=== PATIENT | male | born 1950 | race Caucasian/White ===

== ENCOUNTER 2017-05-17 10:55 | Emergency (ER) | payer MEDICARE, BC ==
[~2017-05-17] VITALS: Ht 180.3 cm; Wt 90.3 kg
[2017-05-17] MEDS ORDERED: SULFAMETH/TRIMETH 800/160 MG TABLET PO ONE (11:45)
[2017-05-17] MEDS ORDERED: CEPHALEXIN MONOHYDRATE 500 MG CAPSULE PO ONE (11:45)
[2017-05-17] MEDS ORDERED: predniSONE 20 MG TABLET PO ONE (11:45)
--- NOTE | 2017-05-17 11:54 | NUR ---
Patient discharged to home in stable conditon. Written and verbal after care instructions given to patient. Patient verbalizes understanding of instructions.
[2017-05-17] MEDS ORDERED: SULFAMETH/TRIMETH 800/160 MG TABLET ONE (12:05)
[2017-05-17] MEDS ORDERED: predniSONE 10 MG TABLET ONE (12:05)
[2017-05-17] MEDS ORDERED: predniSONE 50 MG TABLET ONE (12:05)
== END 2017-05-17 11:55 | disposition home or self-care (01) ==
LOC: ER 10:55
DX: L03.113 Cellulitis of right upper limb (principal); K21.9 Gastro-esophageal reflux disease without esophagitis; Z88.0 Allergy status to penicillin
CPT/HCPCS: A4663; J7512

== ENCOUNTER 2020-05-15 04:41 | Emergency (ER) | payer MEDICARE, BC ==
[~2020-05-15] VITALS: Ht 180.3 cm; Wt 78.9 kg
--- NOTE | 2020-05-15 04:55 | NUR ---
Dr Tim at bedside for MSE.
[2020-05-15] MEDS ORDERED: HYDROMORPHONE 1 MG/1 ML DISP.SYRIN IV ONE ×2 (05:00→09:00)
[2020-05-15] MEDS ORDERED: ONDANSETRON 4 MG/2 ML VIAL IV ONE (05:00)
[2020-05-15] MEDS ORDERED: KETOROLAC TROMETHAMINE 15 MG INJ IVP ONE ×2 (05:00→09:00)
[2020-05-15] MEDS ORDERED: KETOROLAC TROMETHAMINE 15 MG INJ ONE ×2 (05:07→09:01)
[2020-05-15] MEDS ORDERED: ONDANSETRON 4 MG/2 ML VIAL ONE (05:07)
[2020-05-15] MEDS ORDERED: HYDROMORPHONE 1 MG/1 ML DISP.SYRIN ONE ×2 (05:07→09:02)
[2020-05-15 05:26] LABS: *BILIRUBIN,URIN NEGATIVE (NEGATIVE); *CLARITY,URINE CLEAR (CLEAR); *COLOR,URINE YELLOW (YELLOW); *KETONES,URINE NEGATIVE (NEGATIVE); *UROBILINOGEN,URINE 0.2 E.U./dl (NORMAL); LEUKOCYTE ESTERASE ,URINE NEGATIVE (NEGATIVE); NITRITE, URINE NEGATIVE (NEGATIVE); PH,URINE 7.5 (5.0-8.0); UGLUCOSE NEGATIVE (NEGATIVE)
[2020-05-15 05:27] LABS: BASOPHILS % (AUTO) 0.2 % (0.0-2.0); EOSINOPHILS % (AUTO) 0.1 % (0.0-7.0); HEMATOCRIT 47.9 % (36.7-47.1); HEMOGLOBIN 16.2 g/dL (12.5-16.3); LYMPHOCYTES # (AUTO) 0.7 K/uL (20.0-40.0); LYMPHOCYTES % (AUTO) 5.9 % (20.5-51.5); MEAN CORPUSCULAR HEMOGLOBIN 31.9 uug (23.8-33.4); MEAN CORPUSCULAR HGB CONC 34 g/dL (32.5-36.3); MEAN CORPUSCULAR VOLUME 94.5 fL (73.0-96.2); MONOCYTES # (AUTO) 0.3 K/uL (2.0-10.0); NEUTROPHILS # (AUTO) 10.3 K/uL (1.8-8.9); NEUTROPHILS % (AUTO) 90.8 % (38.5-71.5); PLATELET COUNT (AUTO) 185 K/uL (152-348); RED BLOOD CELL COUNT(AUTO) 5.07 MIL/uL (4.06-5.63); WHITE BLOOD COUNT (AUTO) 11.4 K/uL (3.6-10.2)
[2020-05-15 05:35] LABS: *BLOOD, URINE NEGATIVE (NEGATIVE)
[2020-05-15 05:42] LABS: BILIRUBIN,DIRECT 0.1 mg/dL (0.0-0.2); BILIRUBIN,TOTAL 0.6 mg/dL (0.2-1.0); CREATININE 1.5 mg/dL (0.6-1.3); POTASSIUM 4.2 mmol/L (3.5-5.1); TOTAL PROTEIN, SERUM 7.2 g/dL (6.4-8.2)
--- NOTE | 2020-05-15 07:30 | NUR ---
Patient is awake and alert eating breakfast in no distress.
[2020-05-15] MEDS ORDERED: IV NORMAL SALINE 250 ML IV ONE (07:34)
[2020-05-15] MEDS ORDERED: SWABABLE VALVE TRANSFER SET EA MC ONE (07:34)
[2020-05-15] MEDS ORDERED: IOHEXOL 300MG/ML 100 ML INFUS..BTL ONE (07:34)
--- NOTE | 2020-05-15 09:31 | NUR ---
Patient was given pain meds for c/o flank pain. States pain has diminisehd. States he is aware of Dilaudid/[place] precautions and will have a ride home. DC, RX AND FOLLOW UP INSTRUCTIONS GIVEN AND EXPLAINED TO PATIENT WHO STATES HE UNDERSTANDS ALL INSTRUCTIONS.
--- NOTE | 2020-05-15 09:33 | NUR ---
IV removed. Catheter intact and site benign. Pressure and 4x4 gauze applied to site. No bleeding noted.
[2020-05-15 09:35] VITALS: BP 139/75
== END 2020-05-15 09:35 | disposition home or self-care (01) ==
LOC: ER 04:43
DX: N13.6 Pyonephrosis (principal); N17.9 Acute kidney failure, unspecified; Z88.0 Allergy status to penicillin; K21.9 Gastro-esophageal reflux disease without esophagitis; Z85.46 Personal history of malignant neoplasm of prostate
CPT/HCPCS: 36415; 74178; 76770; 80048; 80076; 81003; 85025; 85730; 96374; 96375; 96376; 99285; J1170 ×2; J1885 ×2; J2405; Q9967; A4663; J7030; J7050

== ENCOUNTER 2022-12-29 10:16 | Emergency (ER) | payer MEDICARE, BC ==
[~2022-12-29] VITALS: Ht 180.3 cm; Wt 89.4 kg
[2022-12-29 10:50] LABS: HEMATOCRIT 53.5 % (36.7-47.1); MEAN CORPUSCULAR HEMOGLOBIN 30.9 uug (23.8-33.4); MEAN CORPUSCULAR VOLUME 93.7 fL (73.0-96.2); PLATELET COUNT (AUTO) 197 K/uL (152-348)
[2022-12-29 11:17] LABS: CARBON DIOXIDE 24 mmol/L (21-32); CHLORIDE 98 mmol/L (98-107); CREATININE 1.4 mg/dL (0.6-1.3); POTASSIUM 4.5 mmol/L (3.5-5.1); UREA NITROGEN, BLOOD 23 mg/dL (7-18)
[2022-12-29 11:23] LABS: ALANINE AMINOTRANSFERASE 39 U/L (16-63); ALKALINE PHOSPHATASE 60 U/L (50-136); ASPARTATE AMINOTRANSFERASE 25 U/L (15-37); BILIRUBIN,DIRECT 0.2 mg/dL (0.0-0.2); BILIRUBIN,TOTAL 0.9 mg/dL (0.2-1.0); LIPASE 47 U/L (73-393); TOTAL PROTEIN, SERUM 7.5 g/dL (6.4-8.2)
[2022-12-29] MEDS ORDERED: ONDANSETRON 4 MG/2 ML VIAL ONE (11:29)
[2022-12-29] MEDS ORDERED: ONDANSETRON 4 MG/2 ML VIAL IV ONE (11:30)
[2022-12-29] MEDS ORDERED: IV NORMAL SALINE 1000 ML BAG IV ONE (11:30)
[2022-12-29] MEDS ORDERED: ONDA4TAB5 PO (11:31)
[2022-12-29 11:34] LABS: *BILIRUBIN,URIN NEGATIVE (NEGATIVE); *CLARITY,URINE CLEAR (CLEAR); *COLOR,URINE YELLOW (YELLOW); *KETONES,URINE TRACE (NEGATIVE); *UROBILINOGEN,URINE 0.2 E.U./dl (NORMAL); LEUKOCYTE ESTERASE ,URINE NEGATIVE (NEGATIVE); NITRITE, URINE NEGATIVE (NEGATIVE); PH,URINE 6.5 (5.0-8.0); UGLUCOSE NEGATIVE (NEGATIVE)
[2022-12-29 12:16] LABS: *BLOOD, URINE TRACE (NEGATIVE)
[2022-12-29 12:39] VITALS: BP 123/83; O2SAT 96
[2022-12-29 13:00] LABS: RBC,URINE 0-3 /HPF (0-3); WBC,URINE 0-3 /HPF (0-3)
== END 2022-12-29 12:40 | disposition home or self-care (01) ==
LOC: ER 10:16
DX: R11.2 Nausea with vomiting, unspecified (principal); R19.7 Diarrhea, unspecified; R10.9 Unspecified abdominal pain; N28.9 Disorder of kidney and ureter, unspecified; K21.9 Gastro-esophageal reflux disease without esophagitis; Z88.0 Allergy status to penicillin; Z79.899 Other long term (current) drug therapy
CPT/HCPCS: 36415; 83690; 85025; A4663; J2405; J7040

== ENCOUNTER 2023-12-17 18:29 | Inpatient (IN) | payer MEDICARE, BC ==
[~2023-12-17] VITALS: Ht 180.3 cm; Wt 91.2 kg
[~2023-12-17 18:29] MED LIST: ONDA4TAB5 PO
[2023-12-17 19:54] LABS: BASOPHILS % (AUTO) 0.5 % (0.0-2.0); EOSINOPHILS # (AUTO) 0.2 K/uL (0.0-0.7); EOSINOPHILS % (AUTO) 2.9 % (0.0-7.0); HEMATOCRIT 52.6 % (36.7-47.1); HEMOGLOBIN 17.1 g/dL (12.5-16.3); LYMPHOCYTES # (AUTO) 1.9 K/uL (0.8-4.8); LYMPHOCYTES % (AUTO) 22.8 % (20.5-51.5); MEAN CORPUSCULAR HEMOGLOBIN 28.7 uug (23.8-33.4); MEAN CORPUSCULAR HGB CONC 33 g/dL (32.5-36.3); MEAN CORPUSCULAR VOLUME 88.2 fL (73.0-96.2); MONOCYTES % (AUTO) 12.1 % (0.0-11.0); NEUTROPHILS # (AUTO) 5.1 K/uL (1.8-8.9); NEUTROPHILS % (AUTO) 61.7 % (38.5-71.5); PLATELET COUNT (AUTO) 215 K/uL (152-348); RED BLOOD CELL COUNT(AUTO) 5.96 MIL/uL (4.06-5.63); RED CELL DISTRIBUTION WIDTH 15.3 % (12.1-16.2); WHITE BLOOD COUNT (AUTO) 8.3 K/uL (3.6-10.2)
[2023-12-17 20:03] LABS: CALCIUM 9.8 mg/dL (8.5-10.1); CREATININE 1.2 mg/dL (0.6-1.3); POTASSIUM 4.1 mmol/L (3.5-5.1)
[2023-12-17 20:05] LABS: DIFFERENTIAL COMMENT 1
[2023-12-17] MEDS ORDERED: ONDANSETRON 4 MG/2 ML VIAL ONE (20:06)
[2023-12-17 20:09] LABS: BILIRUBIN,DIRECT 0.1 mg/dL (0.0-0.2); BILIRUBIN,TOTAL 0.5 mg/dL (0.2-1.0); TOTAL PROTEIN, SERUM 7.3 g/dL (6.4-8.2)
[2023-12-17] MEDS: IV NORMAL SALINE 1000 ML BAG IV ONE (20:39)
[2023-12-17] MEDS: ONDANSETRON 4 MG/2 ML VIAL IV ONE (20:39)
[2023-12-17] MEDS ORDERED: ONDANSETRON 4 MG/2 ML VIAL IV PRN ×2 (22:00→22:30)
[2023-12-17] MEDS ORDERED: ACETAMINOPHEN 325 MG TABLET PO PRN ×2 (22:00→22:30)
[2023-12-17] MEDS ORDERED: ENOXAPARIN SODIUM 40 MG/0.4 ML DISP.SYRIN SQ SCH (22:00)
[2023-12-17] MEDS ORDERED: IV 1/2NS 1000 ML 1,000 ML IV PRN (22:00)
[2023-12-17] MEDS ORDERED: REMEDY ESSENTIAL ZINC PASTE 113 GM TP PRN (22:00)
[2023-12-17] MEDS ORDERED: MAGNESIUM HYDROXIDE 30 ML LIQUID UDC PO PRN (22:30)
[2023-12-17] MEDS ORDERED: SWABABLE VALVE TRANSFER SET EA MC ONE (22:39)
[2023-12-17] MEDS ORDERED: IV NORMAL SALINE 250 ML IV ONE (22:39)
[2023-12-17] MEDS ORDERED: IOHEXOL 350 100 ML INFUS..BTL ONE (22:39)
[2023-12-18 00:39] VITALS: BP 138/74; TEMP 98.4; O2SAT 92
[2023-12-18] MEDS: IV 1/2NS 1000 ML 1,000 ML IV PRN (00:46)
[2023-12-18] MEDS: ENOXAPARIN SODIUM 40 MG/0.4 ML DISP.SYRIN SQ SCH (00:48)
[2023-12-18] MEDS: ASPIRIN EC 81 MG TABLET.DR PO SCH (00:48)
[2023-12-18] MEDS ORDERED: TESTOSTERONE INJ (01:25)
[2023-12-18] MEDS ORDERED: IBUP-2314 PO (01:25)
[2023-12-18] MEDS: PANTOPRAZOLE SODIUM 40 MG TABLET.DR PO SCH (06:42)
[2023-12-18 06:44] LABS: BASOPHILS % (AUTO) 0.7 % (0.0-2.0); EOSINOPHILS # (AUTO) 0.2 K/uL (0.0-0.7); EOSINOPHILS % (AUTO) 3.6 % (0.0-7.0); HEMATOCRIT 48.5 % (36.7-47.1); HEMOGLOBIN 15.7 g/dL (12.5-16.3); MEAN CORPUSCULAR HEMOGLOBIN 28.5 uug (23.8-33.4); MEAN CORPUSCULAR HGB CONC 32 g/dL (32.5-36.3); MEAN CORPUSCULAR VOLUME 88.1 fL (73.0-96.2); MONOCYTES # (AUTO) 0.8 K/uL (0.1-1.30); MONOCYTES % (AUTO) 12.5 % (0.0-11.0); NEUTROPHILS # (AUTO) 3.6 K/uL (1.8-8.9); NEUTROPHILS % (AUTO) 53.2 % (38.5-71.5); PLATELET COUNT (AUTO) 219 K/uL (152-348); RED CELL DISTRIBUTION WIDTH 15.1 % (12.1-16.2); WHITE BLOOD COUNT (AUTO) 6.8 K/uL (3.6-10.2)
[2023-12-18 06:50] LABS: DIFFERENTIAL COMMENT 1
[2023-12-18 07:00] LABS: CALCIUM 8.6 mg/dL (8.5-10.1); CARBON DIOXIDE 29 mmol/L (21-32); CHLORIDE 105 mmol/L (98-107); CHOLESTEROL 144 mg/dL (<200); CREATININE 1.2 mg/dL (0.6-1.3); GLUCOSE 86 mg/dL (74-106); HDL CHOLESTEROL 69 mg/dL (40-60); MAGNESIUM 2.2 mg/dL (1.8-2.4); PHOSPHOROUS 3.4 mg/dL (2.5-4.9); POTASSIUM 3.9 mmol/L (3.5-5.1); SODIUM SERUM 141 mmol/L (136-145); TRIGLYCERIDES 89 MG/DL (30-150); UREA NITROGEN, BLOOD 17 mg/dL (7-18)
[2023-12-18] MEDS ORDERED: PANTOPRAZOLE SODIUM 40 MG TABLET.DR PO SCH (07:00)
[2023-12-18 07:40] VITALS: BP 144/76; TEMP 98.5; O2SAT 95
[2023-12-18 07:52] LABS: THYROID STIMULATING HORMONE 3.568 mIU/mL (0.358-3.740)
[2023-12-18 11:33] VITALS: BP 121/75; TEMP 98.3; O2SAT 95
[2023-12-18 16:30] VITALS: BP 159/88; TEMP 97.3; O2SAT 93
[2023-12-18] MEDS ORDERED: ASPI-618 PO (19:18)
[2023-12-18] MEDS ORDERED: PANT40TA49 PO (19:18)
[2023-12-18 20:00] VITALS: BP 127/53; TEMP 97.9; O2SAT 97
[2023-12-18] MEDS ORDERED: ATORVASTATIN 40 MG TABLET PO SCH (21:00)
== END 2023-12-18 19:45 | disposition home or self-care (01) | DRG 69 ==
LOC: ER 18:31 → TELE3 23:23
PROVIDERS: ADMIT Nurse Practitioner Family; ATTEND Internal Medicine
DX: G45.9 Transient cerebral ischemic attack, unspecified (principal); N17.0 Acute kidney failure with tubular necrosis; G93.9 Disorder of brain, unspecified; G54.0 Brachial plexus disorders; E66.9 Obesity, unspecified; Z68.28 Body mass index [BMI] 28.0-28.9, adult; M51.16 Intervertebral disc disorders with radiculopathy, lumbar region; D36.10 Benign neoplasm of peripheral nerves and autonomic nervous system, unspecified; E04.2 Nontoxic multinodular goiter; Z85.46 Personal history of malignant neoplasm of prostate; E86.0 Dehydration; R73.03 Prediabetes; Z86.73 Personal history of transient ischemic attack (TIA), and cerebral infarction without residual deficits; D75.1 Secondary polycythemia; Z88.0 Allergy status to penicillin
CPT/HCPCS: 36415; 70450; 70496; 83735; 84100; 84443; 85025; 85730; 93005; 93307; G0378; J1650; J2405; Q9967